=== PATIENT | female | born 1950 | race Caucasian/White ===

== ENCOUNTER 2016-05-01 06:39 | Day surgery (SDC) | payer OTHER ==
[~2016-05-01] VITALS: Ht 175.3 cm; Wt 72.7 kg
[~2016-05-01 06:39] MED LIST: CALTRATE 600 +1 EAC1 PO; CENTRUM SILVER1 EAC3 PO; ESTRADIOL-NORE1 EAC2 PO; EXCEDRIN EXTRA1 EACH PO; IMITREX50 MG PO; NEXIUM40 MG PO; TYLENOL EXTRA500 MG PO; VITAMIN D-32000 UNI2 PO; VITAMIN E400 UNIT PO; ZOVIRAX400 MG PO; ZYRTEC10 M3 PO; [UNRECOGNIZED DRUG - OTHER] PO
[2016-05-01 08:01] VITALS: BP 145/70
[2016-05-01 08:41] LABS: METH RESISTANT S AUREUS PCR NEGATIVE (NEGATIVE); PROBE CHECK PASS; SPECIMEN PROCESSING CONTROL PASS
[2016-05-01 11:25] VITALS: BP 136/64
[2016-05-01 12:25] VITALS: BP 147/72
== END 2016-05-01 12:55 | disposition home or self-care (01) ==
LOC: SDC 06:39
PROVIDERS: Podiatrist Foot & Ankle Surgery
DX: M20.41 Other hammer toe(s) (acquired), right foot (principal); M24.574 Contracture, right foot; M19.90 Unspecified osteoarthritis, unspecified site; K21.9 Gastro-esophageal reflux disease without esophagitis; E78.5 Hyperlipidemia, unspecified; M54.2 Cervicalgia
CPT/HCPCS: 87641; J0131; J0690; J1100; J1885; J2405; J2765; J3010; S0020

== ENCOUNTER 2016-06-18 09:39 | Day surgery (SDC) | payer OTHER ==
[~2016-06-18] VITALS: Ht 175.3 cm; Wt 72.6 kg
[2016-06-18 10:05] VITALS: BP 136/69
[2016-06-18 14:08] VITALS: BP 132/70
[2016-06-18 15:04] VITALS: BP 130/77
== END 2016-06-18 15:25 | disposition home or self-care (01) ==
LOC: SDC 09:39
DX: M20.41 Other hammer toe(s) (acquired), right foot (principal); M24.574 Contracture, right foot; M19.90 Unspecified osteoarthritis, unspecified site; G43.909 Migraine, unspecified, not intractable, without status migrainosus; K21.9 Gastro-esophageal reflux disease without esophagitis; J32.9 Chronic sinusitis, unspecified; H91.90 Unspecified hearing loss, unspecified ear; E78.5 Hyperlipidemia, unspecified; Z80.0 Family history of malignant neoplasm of digestive organs; Z82.49 Family history of ischemic heart disease and other diseases of the circulatory system; Z80.3 Family history of malignant neoplasm of breast; Z82.0 Family history of epilepsy and other diseases of the nervous system; Z80.1 Family history of malignant neoplasm of trachea, bronchus and lung
CPT/HCPCS: 87641; C1769; J0131; J0690; J1100; J1885; J2405; J3010; S0020